=== PATIENT | male | born 1990 | race African-American/Black ===

== ENCOUNTER 2019-12-20 12:27 | Emergency (ER) | payer MEDICARE ==
[~2019-12-20] VITALS: Ht 195.6 cm; Wt 127.3 kg
[2019-12-20] MEDS ORDERED: LAMO100 PO (12:42)
[2019-12-20 14:10] VITALS: BP 118/76
== END 2019-12-20 14:45 | disposition home or self-care (01) ==
LOC: EMS 12:28
DX: G40.909 Epilepsy, unspecified, not intractable, without status epilepticus (principal); Z76.0 Encounter for issue of repeat prescription

== ENCOUNTER → 2020-01-06 | Outpatient (CLI) | payer MEDICARE ==
[~2020-01-06] VITALS: Ht 195.6 cm; Wt 127.0 kg
[~2020-01-06] MED LIST: LAMO100 PO
[2020-01-06 10:43] VITALS: BP 125/72
== END | disposition home or self-care (01) ==
LOC: SRCNTR 10:42
PROVIDERS: ATTEND Hospitalist
DX: R56.9 Unspecified convulsions (principal)
CPT/HCPCS: G0463